=== PATIENT | female | born 1955 | race Caucasian/White ===

== ENCOUNTER 2018-10-23 10:45 | Emergency (ER) | payer BC, OTHER ==
[~2018-10-23] VITALS: Wt 80.0 kg
[~2018-10-23 10:45] MED LIST: IBUP-1982
[2018-10-23 10:46] VITALS: BP 140/84; PULSE 94; RESP 18
[2018-10-23] MEDS ORDERED: NAPR-985 PO (11:20)
[2018-10-23] MEDS ORDERED: IBUP-1542 PO (12:28)
--- NOTE | 2018-10-23 12:35 | ERD ---
ER Documentation Chief Complaint Chief Complaint R FOOT PAIN FROM A PIECE OF METAL FELL ON HER FOOT NO DEFORMITY HPI 63-year-old female with no significant past medical history who presents with complaint of right great toe pain after having a piece of metal fall on her foot yesterday. Is experiencing worsening pain to the right great toe. She otherwise denies numbness of right lower extremity foot. Has taken Tylenol for pain which is helped somewhat with her symptoms. She otherwise is without complaint. ROS All systems reviewed and are negative except as per history of present illness. Medications Home Meds Active Scripts Ibuprofen* (Motrin*) 600 Mg Tab, 600 MG PO Q6, #30 TAB Prov:JEUDINELIOR PA-C 10/23/18 Naproxen* (Naprosyn*) 500 Mg Tablet, 500 MG PO BID PRN for PAIN AND/OR INFLAMMATION, #30 TAB Prov:JEUDINESTEVEHO PA-C 10/23/18 Reported Medications Ibuprofen* (Ibuprofen*) 200 Mg Capsule 04/21/10 Allergies Allergies: Coded Allergies: No Known Drug Allergies (Verified Allergy, Unknown, 04/21/10) PMhx/Soc History of Surgery: Yes (LT. LEG SX.) Anesthesia Reaction: No Hx Neurological Disorder: No Hx Respiratory Disorders: No Hx Cardiac Disorders: No Hx Psychiatric Problems: No Hx Miscellaneous Medical Probl: No Hx Alcohol Use: No Hx Substance Use: No Hx Tobacco Use: No Smoking Status: Current every day smoker FmHx Family History: No diabetes, No coronary disease, No other Physical Exam Vitals Vital Signs Date Temp Pulse Resp B/P (MAP) Pulse Ox O2 O2 Flow FiO2 Time Delivery Rate 10/23/18 98.5 94 18 140/84 98 10:46 (102) Physical Exam I have reviewed the triage vital signs. Const: Well nourished, well developed, appears stated age Eyes: PERRL, no conjunctival injection HENT: NCAT, Neck supple without meningismus CV: RRR, Warm, well-perfused extremities RESP: CTAB, Unlabored respiratory effort GI: soft, non-tender, non-distended, no masses MSK: No gross deformities appreciated, right great toe with mild swelling, able to wiggle all toes, SI LT throughout right lower extremity Skin: Warm, dry. No rashes Neuro: grossly non focal Psych: Appropriate mood and affect. Procedures/MDM 63-year-old female with complaint of right great toe pain. X-ray significant nondisplaced fracture of right great toe. Will discharge with Ortho boot and appropriate pain medications. Patient instructed to follow-up with PMD. DISPOSITION PLAN: We discussed follow up with the patient's primary care doctor within 24 to 48 hours. Patient counseled regarding my diagnostic impression and care plan. Prior to discharge all questions answered. Pt agrees with treatment plan and understands strict return precautions. Precautionary instructions provided including instructions to return to the ER if not improving or for any worsening or changing symptoms or concerns. Disclaimer: Inadvertent spelling and grammatical errors are likely due to EHR/dictation software use and do not reflect on the overall quality of patient care. Also, please note that the electronic time recorded on this note does not necessarily reflect the actual time of the patient encounter. Departure Diagnosis: Primary Impression: Injury of foot Condition: Stable Patient Instructions: Finger and Toe Fractures (Broken Finger or Toe) Referrals: OSCAR ULLOA MD (PCP) Additional Instructions: Call your primary care doctor TOMORROW for an appointment during the next 2-3 days.See the doctor sooner or return here if your condition worsens before your appointment time. LIOR REDDY PA-C Oct 23, 2018 12:35
[2018-10-23] MEDS ORDERED: NAPROXEN 500 MG TAB PO ONE (13:30)
== END 2018-10-23 13:15 | disposition home or self-care (01) ==
LOC: FTE 10:45
DX: S99.921A Unspecified injury of right foot, initial encounter (principal); F17.210 Nicotine dependence, cigarettes, uncomplicated; W20.8XXA Other cause of strike by thrown, projected or falling object, initial encounter; Y92.9 Unspecified place or not applicable
CPT/HCPCS: 73630